=== PATIENT | female | born 2000 | race Caucasian/White ===

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

== ENCOUNTER 2018-11-14 09:43 | Emergency (ER) | payer MEDICAID, OTHER ==
[2018-11-14 10:37] LABS: Bacteria,Urine 1+ /HPF (Negative); Bilirubin,Urine NEG (Negative); Blood,Urine NEG (Negative); Color,Urine Yellow (Yellow); Mucus,Urine FEW /HPF; Urobilinogen,Urine < 2.0 mg/dL (<2.0)
[2018-11-14 10:41] LABS: HCG Qualitative,Urine Negative (Negative)
--- NOTE | 2018-11-14 11:30 | Emergency Department Report ---
<HERNAN ROGERS - Last Filed: 11/14/18 11:27> ED General Adult HPI - General Chief complaint: Nausea/Vomiting/Diarrhea Stated complaint: VAGINAL PAIN/DIARRHEA/VOMITING Time Seen by Provider: 11/14/18 11:21 Source: patient Mode of arrival: Ambulatory Limitations: No Limitations - History of Present Illness Initial comments: Patient is 18 years old female with no significant past medical history. Patient presented to the ER complaining of nausea vomiting and diarrhea for the last 3 days. She also stated that she's been having some runny nose cough and congestion. Patient also stating that she been having dysuria and increased urinary frequency. Patient denied any abdominal pain or fever. - Related Data Previous Rx's Medication Instructions Recorded Last Taken Type Cefdinir 300 mg PO BID #20 capsule 05/27/17 Unknown Rx methylPREDNISolone [Medrol] 4 mg PO DAILY #1 tab.ds.pk 05/27/17 Unknown Rx Clindamycin [Clindamycin CAP] 300 mg PO Q8H 10 Days #30 cap 10/28/18 Unknown Rx Sulfamethoxazole/Trimethoprim 1 each PO BID #6 tablet 10/28/18 Unknown Rx [Bactrim DS TAB] Nitrofurantoin Macrocrystal 100 mg PO BID #10 capsule 11/14/18 Unknown Rx [Nitrofurantoin] Valacyclovir HCl [Valtrex] 1,000 mg PO BID #20 tablet 11/14/18 Unknown Rx Allergies Allergy/AdvReac Type Severity Reaction Status Date / Time No Known Allergies Allergy Verified 05/27/17 12:56 ED Review of Systems Comment: All other systems reviewed and negative Constitutional: denies: chills, fever ENT: congestion Respiratory: cough. denies: orthopnea, shortness of breath, SOB with exertion Gastrointestinal: nausea, vomiting, diarrhea. denies: abdominal pain, constipation, hematemesis, melena, hematochezia Genitourinary: urgency, dysuria, frequency. denies: hematuria, discharge, abnormal menses, dyspareunia Neurological: denies: headache, weakness, numbness, paresthesias, confusion, abnormal gait ED Past Medical Hx - Past Medical History Previous Medical History?: Yes Additional medical history: OBESE-cbp bc of her weight per her pcp - Surgical History Past Surgical History?: Yes Additional Surgical History: - Social History Smoking Status: Never Smoker Substance Use Type: None - Medications Home Medications: Home Medications Medication Instructions Recorded Confirmed Last Taken Type Cefdinir 300 mg PO BID #20 capsule 05/27/17 Unknown Rx methylPREDNISolone [Medrol] 4 mg PO DAILY #1 tab.ds.pk 05/27/17 Unknown Rx Clindamycin [Clindamycin CAP] 300 mg PO Q8H 10 Days #30 cap 10/28/18 Unknown Rx Sulfamethoxazole/Trimethoprim 1 each PO BID #6 tablet 10/28/18 Unknown Rx [Bactrim DS TAB] Nitrofurantoin Macrocrystal 100 mg PO BID #10 capsule 11/14/18 Unknown Rx [Nitrofurantoin] Valacyclovir HCl [Valtrex] 1,000 mg PO BID #20 tablet 11/14/18 Unknown Rx ED Physical Exam - General Limitations: No Limitations General appearance: alert, in no apparent distress - Head Head exam: Present: atraumatic, normocephalic, normal inspection - Eye Eye exam: Present: normal appearance - ENT ENT exam: Present: normal exam, normal orophraynx, mucous membranes moist - Neck Neck exam: Present: normal inspection, full ROM. Absent: tenderness, meningismus, lymphadenopathy, thyromegaly - Respiratory Respiratory exam: Present: normal lung sounds bilaterally - Cardiovascular Cardiovascular Exam: Present: regular rate, normal rhythm, normal heart sounds - GI/Abdominal GI/Abdominal exam: Present: soft, normal bowel sounds. Absent: distended, tenderness, guarding, rebound, rigid, organomegaly, mass, bruit, pulsatile mass - Extremities Exam Extremities exam: Present: normal inspection, full ROM, normal capillary refill. Absent: tenderness, pedal edema, calf tenderness - Back Exam Back exam: Present: normal inspection, full ROM. Absent: tenderness, CVA tenderness (R), CVA tenderness (L), muscle spasm, paraspinal tenderness, vertebral tenderness - Neurological Exam Neurological exam: Present: alert, oriented X3, CN II-XII intact, normal gait, reflexes normal - Skin Skin exam: Present: warm, intact, normal color ED Disposition Clinical Impression: Gastroenteritis, Exposure to STD UTI (urinary tract infection) Qualifiers: Urinary tract infection type: acute cystitis Hematuria presence: without hematuria Qualified Code(s): N30.00 - Acute cystitis without hematuria Disposition: TO HOME OR SELFCARE Is pt being admited?: No Condition: Stable Instructions: Urinary Tract Infection in Women (ED), Gastroenteritis (ED) Additional Instructions: Increase fluid intake to 1L to 2L daily. Complete full course of antibiotics as prescribed. Avoid drinking alcohol while taking antibiotics and for 24 hours after completion. Follow up with primary care provider in 2-3 days. Prescriptions: Nitrofurantoin Macrocrystal [Nitrofurantoin] 100 mg PO BID #10 capsule Valacyclovir HCl [Valtrex] 1,000 mg PO BID #20 tablet Referrals: [facility] [Outside] - 3-5 Days [facility] [Outside] - 3-5 Days [facility] [Outside] - 3-5 Days Forms: Work/School Release Form(ED) <SUZETTE FORD - Last Filed: 11/14/18 15:34> ED Review of Systems ROS: Stated complaint: VAGINAL PAIN/DIARRHEA/VOMITING Other details as noted in HPI ED Physical Exam - External exam: Present: lesions (multiple vesicular lesions to left internal labia manora, tenderness). Absent: erythema, swelling, lacerations, ecchymosis, bleeding ED Course Vital Signs 11/14/18 09:51 Temperature 98.8 F Pulse Rate 119 H Respiratory 18 Rate Blood Pressure 133/90 O2 Sat by Pulse 97 Oximetry ED Medical Decision Making - Lab Data Lab Results 11/14/18 Range/Units 10:15 Urine Color Yellow (Yellow) Urine Turbidity Slightly-cloudy (Clear) Urine pH 6.0 (5.0-7.0) Ur Specific [place] 1.017 (1.003-1.030) Urine Protein 30 mg/dl (Negative) mg/dL Urine Glucose (UA) Neg (Negative) mg/dL Urine Ketones Neg (Negative) mg/dL Urine Blood Neg (Negative) Urine Nitrite Neg (Negative) Urine Bilirubin Neg (Negative) Urine Urobilinogen < 2.0 (<2.0) mg/dL Ur Leukocyte Esterase Lg (Negative) Urine WBC (Auto) 97.0 H (0.0-6.0) /HPF Urine RBC (Auto) 14.0 (0.0-6.0) /HPF U Epithel Cells (Auto) 13.0 (0-13.0) /HPF Urine Bacteria (Auto) 1+ (Negative) /HPF Urine Mucus Few /HPF Urine HCG, Qual Negative (Negative) - Medical Decision Making Pelvic exam performed. Vesicular rash susceptible of herpes simplex 2. Will start antiviral and refer to primary care provider for STD screening. Critical care attestation.: If time is entered above; I have spent that time in minutes in the direct care of this critically ill patient, excluding procedure time. ED Disposition Time of Disposition: 12:04
[2018-11-14 13:35] VITALS: BP 124/74
== END 2018-11-14 13:29 | disposition home or self-care (01) ==
LOC: ED 09:43
DX: K52.9 Noninfective gastroenteritis and colitis, unspecified (principal); N30.00 Acute cystitis without hematuria; Z20.2 Contact with and (suspected) exposure to infections with a predominantly sexual mode of transmission
CPT/HCPCS: 81001; 81025

== ENCOUNTER 2019-08-01 09:39 | Emergency (ER) | payer SELFPAY ==
[2019-08-01 09:55] VITALS: BP 133/78
[2019-08-01 10:32] LABS: Basophils # (Auto) 0.1 K/mm3 (0.0-0.1); Basophils % (Auto) 0.7 % (0.0-1.8); Eosinophils # (Auto) 0.1 K/mm3 (0.0-0.4); Eosinophils % (Auto) 1.5 % (0.0-4.3); Hematocrit 39.8 % (30.3-42.9); Hemoglobin 12.7 gm/dl (10.1-14.3); Lymphocytes # (Auto) 2.1 K/mm3 (1.2-5.4); Lymphocytes % (Auto) 29.9 % (13.4-35.0); Mean Corpuscular HGB Conc 32 % (30-34); Mean Corpuscular Volume 86 fl (79-97); Monocytes # (Auto) 0.4 K/mm3 (0.0-0.8); Monocytes % (Auto) 5.1 % (0.0-7.3); Platelet Count 287 K/mm3 (140-440); Red Blood Count 4.64 M/mm3 (3.65-5.03); Red Cell Distribution Width 17.7 % (13.2-15.2)
[2019-08-01 10:56] LABS: BUN/Creatinine Ratio 19; Blood Urea Nitrogen 13 mg/dL (7-17); Calcium 8.9 mg/dL (8.4-10.2); Hemolysis Index 5
[2019-08-01 11:52] LABS: Bacteria,Urine 1+ /HPF (Negative); Bilirubin,Urine NEG (Negative); Blood,Urine NEG (Negative); Color,Urine Yellow (Yellow); Protein,Urine <15 mg/dL mg/dL (Negative); Urobilinogen,Urine < 2.0 mg/dL (<2.0)
--- NOTE | 2019-08-01 12:01 | Emergency Department Report ---
ED Psych HPI - General Chief Complaint: Psych Stated Complaint: PSYCH EVAL Time Seen by Provider: 08/01/19 10:44 Source: patient Mode of arrival: Ambulatory - History of Present Illness Initial Comments: 18 yo AA F pt with hx of Depression complains of suicidal thoughts x 1 month. She reports hx of attempted suicide at age 12. She denies any specific plan of suicide, homicidal ideation, or hallucinations. She states she was previously on lexapro years ago and states it worked well for her. MD Complaint: suicidal ideation, feels depressed -: Gradual Associated Psychiatric Symptoms: depression, suicidal ideation History of same: Yes Quality: constant, getting worse Improves With: none Worsens With: none Associated Symptoms: denies other symptoms Treatments Prior to Arrival: none If Self Harm: admits thoughts of - Related Data Previous Rx's Medication Instructions Recorded Last Taken Type Cefdinir 300 mg PO BID #20 capsule 05/27/17 Unknown Rx methylPREDNISolone [Medrol] 4 mg PO DAILY #1 tab.ds.pk 05/27/17 Unknown Rx Clindamycin [Clindamycin CAP] 300 mg PO Q8H 10 Days #30 cap 10/28/18 Unknown Rx Sulfamethoxazole/Trimethoprim 1 each PO BID #6 tablet 10/28/18 Unknown Rx [Bactrim DS TAB] Nitrofurantoin Macrocrystal 100 mg PO BID #10 capsule 11/14/18 Unknown Rx [Nitrofurantoin] Valacyclovir HCl [Valtrex] 1,000 mg PO BID #20 tablet 11/14/18 Unknown Rx Allergies Allergy/AdvReac Type Severity Reaction Status Date / Time No Known Allergies Allergy Verified 05/27/17 12:56 ED Review of Systems ROS: Stated complaint: PSYCH EVAL Other details as noted in HPI Constitutional: denies: chills, fever Eyes: denies: eye pain, eye discharge, vision change ENT: denies: ear pain, throat pain Respiratory: denies: cough, shortness of breath, wheezing Cardiovascular: denies: chest pain, palpitations Endocrine: no symptoms reported Gastrointestinal: denies: abdominal pain, nausea, diarrhea Genitourinary: denies: urgency, dysuria, discharge Musculoskeletal: denies: back pain, joint swelling, arthralgia Skin: denies: rash, lesions Neurological: denies: headache, weakness, paresthesias Psychiatric: depression, suicidal thoughts. denies: anxiety, auditory hallucinations, visual hallucinations, homicidal thoughts Hematological/Lymphatic: denies: easy bleeding, easy bruising ED Past Medical Hx - Past Medical History Previous Medical History?: Yes Hx Psychiatric Treatment: Yes (Borderline Personality Disorder, depression, PTSD) Additional medical history: OBESE-cbp bc of her weight per her pcp - Surgical History Past Surgical History?: Yes Additional Surgical History: - Social History Smoking Status: Never Smoker Substance Use Type: Alcohol, Marijuana - Medications Home Medications: Home Medications Medication Instructions Recorded Confirmed Last Taken Type Cefdinir 300 mg PO BID #20 capsule 05/27/17 Unknown Rx methylPREDNISolone [Medrol] 4 mg PO DAILY #1 tab.ds.pk 05/27/17 Unknown Rx Clindamycin [Clindamycin CAP] 300 mg PO Q8H 10 Days #30 cap 10/28/18 Unknown Rx Sulfamethoxazole/Trimethoprim 1 each PO BID #6 tablet 10/28/18 Unknown Rx [Bactrim DS TAB] Nitrofurantoin Macrocrystal 100 mg PO BID #10 capsule 11/14/18 Unknown Rx [Nitrofurantoin] Valacyclovir HCl [Valtrex] 1,000 mg PO BID #20 tablet 11/14/18 Unknown Rx ED Physical Exam - General Limitations: No Limitations General appearance: alert, in no apparent distress - Head Head exam: Present: atraumatic, normocephalic - Respiratory Respiratory exam: Present: normal lung sounds bilaterally. Absent: respiratory distress - Cardiovascular Cardiovascular Exam: Present: regular rate, normal rhythm, normal heart sounds. Absent: systolic murmur, diastolic murmur, rubs, gallop - Extremities Exam Extremities exam: Present: full ROM - Neurological Exam Neurological exam: Present: alert, oriented X3 - Psychiatric Psychiatric exam: Present: normal affect, depressed, anxious, suicidal ideation. Absent: agitated, manic, homicidal ideation ED Course Vital Signs 08/01/19 09:50 Temperature 99.5 F Pulse Rate 100 H Respiratory 20 Rate Blood Pressure 133/78 O2 Sat by Pulse 99 Oximetry ED Medical Decision Making - Lab Data Result diagrams: 08/01/19 10:03 08/01/19 10:03 - Medical Decision Making 18-year-old female patient with history of depression and is here for suicidal thoughts. Patient was assessed by EVERARDO Krause, who states patient does not meet inpatient criteria. Mr. Briseno states patient signed a safety contract and was provided with outpatient resources. Patient to be discharged home. Critical care attestation.: If time is entered above; I have spent that time in minutes in the direct care of this critically ill patient, excluding procedure time. ED Disposition Clinical Impression: Depression, Suicidal thoughts Disposition: DC-01 TO HOME OR SELFCARE Is pt being admited?: No Does the pt Need Aspirin: No Time of Disposition: 16:19
[2019-08-01 12:12] LABS: Amphetamine Screen,Urine PRESUMPTIVE NEGATIVE; Benzodiazepines Screen,Urine PRESUMPTIVE NEGATIVE; Cannabinoid Screen,Urine PRESUMPTIVE NEGATIVE; Cocaine Screen,Urine PRESUMPTIVE NEGATIVE; Methadone Screen,Urine PRESUMPTIVE NEGATIVE; Opiate Screen,Urine PRESUMPTIVE NEGATIVE
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
== END 2019-08-01 16:31 | disposition home or self-care (01) ==
LOC: ED 09:39 → EEVIPCON 09:39 → ED 16:31
DX: F32.9 Major depressive disorder, single episode, unspecified (principal); F43.10 Post-traumatic stress disorder, unspecified; Z79.899 Other long term (current) drug therapy; F12.10 Cannabis abuse, uncomplicated
CPT/HCPCS: 36415; 80048; 80307; 80320; 81001; 85025; 99284; G0480